=== PATIENT | male | born 1965 | race Caucasian/White ===

== ENCOUNTER → 2023-08-09 09:38 | Outpatient (REF) | payer BC, SELFPAY | LOC: RCS 09:38 | PROVIDERS: ATTENDING PHYSICIAN Physician Assistant Medical | DX: R06.09 Other forms of dyspnea (principal) | CPT/HCPCS: 93017 ==

== ENCOUNTER → 2024-01-27 07:28 | Outpatient (REF) | payer OTHER, SELFPAY ==
[2024-01-27 08:31] LABS: ALT (SGPT) 57 U/L (0-50); AST (SGOT) 39 U/L (17-59); Albumin 4.2 g/dl (3.5-5.0); Alkaline Phosphatase 45 U/L (38-126); Blood Urea Nitrogen 19 mg/dl (9-20); Calcium 9.1 mg/dl (8.4-10.2); Carbon Dioxide 30 mmol/L (22-30); Chloride 102 mmol/L (98-107); Glucose 113 mg/dl (70-99); HDL Cholesterol 61 mg/dl; LDL Cholesterol, Calculated 110 mg/dl; Potassium 3.8 mmol/L (3.5-5.1); Sodium 140 mmol/L (135-145); Total Bilirubin 0.7 mg/dl (0.2-1.3); Total Cholesterol 200 mg/dl (50-199); Total Protein 6.5 g/dl (6.3-8.2); Triglyceride 145 mg/dl (10-149); Very Low Density Lipoprotein 29 mg/dl (0-30); eGFR > 60.00
[2024-01-27 14:08] LABS: Glycohemoglobin (HgbA1c) 5.8 % (4.0-5.6)
== END ==
LOC: REG 07:28
PROVIDERS: ATTENDING PHYSICIAN Physician Assistant Medical
DX: I10 Essential (primary) hypertension (principal); E78.2 Mixed hyperlipidemia; R73.01 Impaired fasting glucose
CPT/HCPCS: 36415; 80053; 80061; 83036

== ENCOUNTER 2024-04-28 18:54 | Emergency (ER) | payer OTHER, SELFPAY ==
[2024-04-28 18:59] VITALS: BP 169/110
[2024-04-28 19:12] LABS: % Basophils 0.6 % (0-2); % Immature Granulocytes 0.2 % (0-0.5); % Lymphocytes 18.1 % (20.5-51.1); % Monocytes 13.2 % (1.7-9.3); % Neutrophils 65.9 % (42.2-75.2); Absolute Basophils 0.1 10^3/uL (0-0.2); Absolute Eosinophils 0.2 10^3/uL (0-0.7); Absolute Lymphocytes 1.5 10^3/uL (1.2-3.4); Absolute Monocytes 1.1 10^3/uL (0.1-0.6); Absolute Neutrophils 5.6 10^3/uL (1.4-6.5); Hematocrit 41.3 % (39.0-52.0); Hemoglobin 14.3 g/dL (13.0-18.0); Mean Corp Hgb Conc. 34.6 g/dL (33.0-37.0); Mean Corpuscular Hgb 31.2 pg (27.0-31.0); Mean Corpuscular Volume 90.2 fL (80.0-94.0); Mean Platelet Volume 9.6 fL (7.4-10.4); Nucleated Red Blood Cells % 0 % (-); Platelet Count 183 10^3/uL (130-400); Red Blood Cell Count 4.58 10^6/uL (4.70-6.10); Red Cell Dist. Width 11.9 % (11.5-14.5); White Blood Cell Count 8.5 10^3/uL (4.8-10.8)
[2024-04-28 19:26] LABS: ALT (SGPT) 44 U/L (0-50); AST (SGOT) 29 U/L (17-59); Albumin 4.6 g/dl (3.5-5.0); Alkaline Phosphatase 60 U/L (38-126); Blood Urea Nitrogen 12 mg/dl (9-20); Calcium 9.3 mg/dl (8.4-10.2); Carbon Dioxide 24 mmol/L (22-30); Chloride 101 mmol/L (98-107); Glucose 110 mg/dl (70-99); Potassium 3.7 mmol/L (3.5-5.1); Sodium 136 mmol/L (135-145); Total Bilirubin 0.8 mg/dl (0.2-1.3); Total Protein 6.9 g/dl (6.3-8.2); eGFR > 60.00
[2024-04-28 19:38] LABS: Troponin I < 0.012 ng/ml
[2024-04-28 20:18] VITALS: BP 153/99
[2024-04-28 20:28] VITALS: BMI 32.3
[2024-04-28 21:00] VITALS: BP 151/91
[2024-04-28 21:16] LABS: D-Dimer 0.74 ug/mlFEU (0.00-0.50)
[2024-04-28 21:29] LABS: Troponin I < 0.012 ng/ml
[2024-04-28 22:00] VITALS: BP 155/81
[2024-04-28 23:00] VITALS: BP 158/96
--- NOTE | 2024-04-28 23:07 | ED.GENMED ---
History of Present Illness
General
Chief Complaint: Chest Pain
Source: patient
Exam Limitations: none
Time Seen by Provider: 04/28/24 20:09
Nursing documentation reviewed up to this point in time: agreed with
History of Present Illness
History of Present Illness:
Patient to ED wt complaint of left chest pain. Symptoms started this afternoon. No associated n/v/diaphoresis. No SOB, no cough. Brought self to ED for eval. No prior history of same.
Past History
Past History
ED Past Medical History: HTN and Hypercholesterolemia
Review of Systems
Review of Systems
Allergies reviewed?: Yes
All Other Systems: ROS reviewed and negative except as documented in HPI and ROS
Constitutional: Reports no symptoms
EENT: Reports no symptoms
Respiratory: Reports no symptoms
Cardiac: Reports chest pain (Left chest pain)
ABD/GI: Reports no symptoms
Musculoskeletal: Reports no symptoms
Skin: Reports no symptoms
Neurological: Reports no symptoms
Psychiatric: Reports no symptoms
Phy Exam
General Physical Exam
General Presentation: well appearing and no apparent distress
General age: appears stated age
General Skin: warm and dry
General Habitus: normal
General Mental: alert
Cardiovascular Exam
Cardiovascular Exam: regular rate/rhythm and no edema
Pulmonary Exam
Pulmonary Exam: lungs clear and no respiratory distress
Gastrointestinal Exam
Gastrointestinal Exam: normal bowel sounds, non tender, soft and no organomegaly
Musculoskeletal Exam
Musculoskeletal Exam: full ROM and neuro vasc intact
Skin Exam
Skin Exam: normal color, warm/dry and no rash
Psychiatric Exam
Psychiatric Exam: normal mood/affect
Scores
Heart Score for Chest Pain Patients
STEMI patient?: No
History: Slightly or Non-Suspicious
ECG: Normal
Age: >45 - <65 years
Risk Factors: 1 or 2 Risk Factors
Troponin: </= Normal Limit
Heart Score for Chest Pain Patients: 2
Heart Score Risk: 2.5% MACE over next 6 weeks
Course
Orders/Labs/Results
Orders:
Orders
04/28/24 18:55
Electrocardiogram (*1) Urgent
Reason for Study: Chest Pain
04/28/24 18:56
EKG- Treatment ONCE
04/28/24 19:05
Complete Blood Count/With Diff Urgent
Comprehensive Metabolic Panel Urgent
Troponin I Urgent
04/28/24 20:53
D-Dimer Urgent
Troponin I Urgent
04/28/24 21:17
Influenza A+B Rapid Molecular Urgent
[facility] Source: Nasal Swab
Specimen Description:
04/28/24 21:49
CT Chest PE Study Urgent
Comment:
Reason For Exam: left chest pain, elevated ddimer
Abnormal Lab Results
04/28/24 04/28/24
19:05 20:53
RBC 4.58 L 10^6/uL
(4.70-6.10)
MCH 31.2 H pg
(27.0-31.0)
Absolute Monos (auto) 1.1 H 10^3/uL
(0.1-0.6)
Lymphocytes % 18.1 L %
(20.5-51.1)
Monocytes % 13.2 H %
(1.7-9.3)
D-Dimer 0.74 H ug/mlFEU
(0.00-0.50)
Glucose 110 H mg/dl
(70-99)
04/28/24 19:05
04/28/24 19:05
Vital Signs
Initial and Last Documented VS:
Initial Vital Signs
Temp Pulse Resp BP Pulse Ox
99.6 F 96 18 169/110 97
04/28/24 18:59 04/28/24 18:59 03/04/25 18:59 04/28/24 18:59 04/28/24 18:59
Last Documented Vital Signs
Temp Pulse Resp BP Pulse Ox
99.6 F 92 22 158/96 95
04/28/24 18:59 04/28/24 23:15 04/28/24 23:15 04/28/24 23:00 04/28/24 23:15
*Critical Care Note
Total Time (30-74mins, 75-104mins- exclusive of procedures): Not Applicable
Update Note
Update Note:
Patient to ED with complaint of left sided chest pain. Pain started earlier tonight. Reports pain radiates to left lateral ribs. No n/v/diaphoresis. Labs reviewed. Troponin neg x 2, DDimer mildly elevated, sent for CT. EKG NSR. Ct results neg
for PE. Showind coronary artery calcification. WIll recommend follow up with cardiology. Placed on chest pain hotline. He is discharged home and will follow upw ith cardiology. Given instructions on s/s to return to ED and he is agreeable to
plan.
ED Attending Note
-
Portions of this chart may have been created with voice recognition software.� Occasional wrong word or��sound alike� substitutions may have occurred due to the inherent limitations of voice recognition software.
Discharge Plan
Departure
Patient Disposition: Home (Routine Discharge)
Date of Disposition: 04/28/24
Time of Disposition: 23:20
Patient with high blood pressure during this ER visit?: No
Condition: Good
Discharge Problem:
Chest pain
Instructions: Chest Pain DCA Follow Up
Referrals:
Sebastián Odom PA-C [Family Provider] -
Eulalio Haile MD [Active] - Call in 1-3 days for appt
Activity Restrictions/Additional Instructions:
Return to the emergency department immediately for any changes in/worsening of your symptoms.
Interventions
Interventions:
*Risk Screen - Suicide Last Done: 04/28/24 18:59
*General Assessment Last Done: 04/28/24 18:59
*Neglect/Abuse Screening Last Done: 04/28/24 18:59
*ED- Fall Risk Assessment Last Done: 04/28/24 20:28
*ED COVID-19 Vaccine History Last Done: 04/28/24 20:28
*Nursing Disposition Last Done: 04/28/24 23:28
ED- Cardiac Assessment Last Done: 04/28/24 20:28
Discharge Date and Time
Discharge Date/Time: 04/28/24 23:32
Print Language: GUYANESE
== END 2024-04-28 23:32 | disposition home or self-care (01) ==
LOC: EMR 18:54
PROVIDERS: Emergency Medicine; Nurse Practitioner; EMERGENCY PHYSICIAN Emergency Medicine; FAMILY PHYSICIAN Physician Assistant Medical
DX: R07.89 Other chest pain (principal); E78.00 Pure hypercholesterolemia, unspecified; I10 Essential (primary) hypertension; I25.10 Atherosclerotic heart disease of native coronary artery without angina pectoris
CPT/HCPCS: 99284; 71275; 80053; 84484; 85025; 85379; 87502; 93005; Q9967

== ENCOUNTER → 2024-05-27 07:15 | Outpatient (REF) | payer OTHER, SELFPAY | LOC: RCS 07:15 | PROVIDERS: ATTENDING PHYSICIAN Internal Medicine Cardiovascular Disease; FAMILY PHYSICIAN Physician Assistant Medical | DX: R07.89 Other chest pain (principal); I25.10 Atherosclerotic heart disease of native coronary artery without angina pectoris | CPT/HCPCS: 93306 ==

== ENCOUNTER → 2024-06-04 07:06 | Outpatient (REF) | payer OTHER, SELFPAY | LOC: HWRCS 07:06 | PROVIDERS: ATTENDING PHYSICIAN Internal Medicine Cardiovascular Disease; FAMILY PHYSICIAN Physician Assistant Medical | DX: R07.89 Other chest pain (principal); I25.10 Atherosclerotic heart disease of native coronary artery without angina pectoris | CPT/HCPCS: 78452; 93017; A9500 ==

== ENCOUNTER → 2024-11-06 10:44 | Outpatient (REF) | payer OTHER, SELFPAY ==
[2024-11-06 11:42] LABS: Hematocrit 45.0 % (39.0-52.0); Hemoglobin 15.6 g/dL (13.0-18.0); Mean Corp Hgb Conc. 34.7 g/dL (33.0-37.0); Mean Corpuscular Volume 91.8 fL (80.0-94.0); Nucleated Red Blood Cells % 0 % (-); Platelet Count 235 10^3/uL (130-400); Red Cell Dist. Width 11.9 % (11.5-14.5)
[2024-11-06 12:07] LABS: Glycohemoglobin (HgbA1c) 6.0 % (4.0-5.6)
[2024-11-06 12:10] LABS: ALT (SGPT) 63 U/L (0-50); AST (SGOT) 36 U/L (17-59); Albumin 4.9 g/dl (3.5-5.0); Alkaline Phosphatase 61 U/L (38-126); Blood Urea Nitrogen 30 mg/dl (9-20); Calcium 10.1 mg/dl (8.4-10.2); Carbon Dioxide 29 mmol/L (22-30); Chloride 103 mmol/L (98-107); Glucose 114 mg/dl (70-99); Magnesium 2.1 mg/dl (1.6-2.3); Potassium 4.1 mmol/L (3.5-5.1); Sodium 141 mmol/L (135-145); Total Protein 7.4 g/dl (6.3-8.2); Uric Acid 10.0 mg/dl (3.5-8.5); eGFR > 60.00
[2024-11-06 12:34] LABS: TSH 2.07 uIU/ml (0.47-4.68)
== END ==
LOC: REG 10:44
PROVIDERS: ATTENDING PHYSICIAN Nurse Practitioner Family; FAMILY PHYSICIAN Physician Assistant Medical
DX: I10 Essential (primary) hypertension (principal); G47.33 Obstructive sleep apnea (adult) (pediatric); R73.03 Prediabetes; E78.2 Mixed hyperlipidemia; E88.810 Metabolic syndrome
CPT/HCPCS: 36415; 80053; 80061; 83036; 83525; 83704; 83735; 84439; 84443; 84550; 85025